=== PATIENT | male | born 1970 | race Caucasian/White ===

== ENCOUNTER → 2019-10-10 | Outpatient (CLI) | payer OTHER, SELFPAY ==
[2019-10-10 15:23] LABS: Hematocrit 45.1 % (40-54); Hemoglobin 14.9 g/dL (13.0-16.5); Mean Corpuscular Hgb 30.9 pg (27.0-32.0); Mean Corpuscular Volume 93.6 fL (80-94); Mean Platelet Vol. 10.8 fl (6.2-12.0); Platelet Count 218 K/mm3 (150-450); RBC Distribution Width CV 12.3 % (11.6-14.6); RBC Distribution Width SD 42.1 fl (35.1-43.9); Red Blood Count 4.82 M/mm3 (4.6-6.2)
[2019-10-10 15:47] LABS: Hemoglobin A1c 5.5 % (3.8-5.6)
[2019-10-10 16:11] LABS: Progesterone Level 0.32 ng/mL (See Comment); Vitamin B12 514 pg/mL (211-911); Vitamin D,25 Hydroxy 37.5 ng/mL
[2019-10-10 16:16] LABS: Homocysteine 8.7 umol/L (3.2-10.7)
[2019-10-10 16:41] LABS: ALB/GLOB Ratio 1.2 RATIO (0.9-2.4); AST(SGOT) 24 U/L (15-37); Alanine Aminotransfer ALT/SGPT 47 U/L (16-61); Albumin, Serum 4.4 g/dL (3.2-5.0); Alkaline Phosphatase 68 U/L (45-117); Anion Gap 5 (5-15); BUN 14 mg/dL (7-18); BUN/Creat Ratio 13.5 RATIO (10-20); CRP, High Sensitivity Cardiac 0.91 mg/L; Calcium,Total 9.1 mg/dL (8.5-10.1); Chloride 105 mmol/L (98-107); Cholesterol 199 mg/dL (200); Creatinine, Serum 1.04 mg/dL (0.70-1.30); EST Glomerular Filtration Rate 80 mL/min (>60); Est Glom Filt Rate - Afr Amer 97 mL/min (>60); Follicle Stimulating Hormone 4.5 mIU/mL; Globulin 3.7 g/dL (2.2-4.2); Glucose 84 mg/dL (74-106); High Density Lipoprotein 48 mg/dL; Iron 93 ug/dL (65-175); Luteinizing Hormone 3.8 mIU/mL; Magnesium 2.2 mg/dL (1.6-2.6); PSA,Total - Annual Screen 1.13 ng/mL (0.00-4.00); Potassium 4.1 mmol/L (3.5-5.1); Prolactin 5.6 ng/mL; Protein, Total 8.1 g/dL (6.4-8.2); Sodium Level 139 mmol/L (136-145); T4 Total, Thyroxin 10.8 ug/dL (4.5-12.1); Thyroid Stim Hormone (TSH) 1.41 uIU/mL (0.358-3.74); Triglycerides 115 mg/dL; Very Low Density Lipoprotein 23 mg/dL (5-40)
[2019-10-10 22:36] LABS: T4 Free Direct 0.99 ng/dL (0.76-1.46)
[2019-10-16 12:07] LABS: Insulin Like Growth Factor 138 ng/mL (81-263); Testosterone, % Free 1.89 % (1.50-4.20); Testosterone, Free 12.27 ng/dL (5.00-21.00)
[2019-10-16 20:04] LABS: Sex Hormone-binding Globulin 46.6 nmol/L (16.5-55.9); Testosterone, Total 649 ng/dL (264-916)
== END | disposition home or self-care (01) ==
LOC: MTLAB 12:24
PROVIDERS: PCP Family Medicine; Referring Provider Nurse Practitioner Family; Visit Provider Nurse Practitioner Family
DX: M62.81 Muscle weakness (generalized) (principal); E66.9 Obesity, unspecified; E29.1 Testicular hypofunction; R68.82 Decreased libido; R53.82 Chronic fatigue, unspecified
CPT/HCPCS: 36415; 80053; 80061; 82306; 82533; 82607; 82627; 82670; 82746; 83001; 83002; 83036; 83090; 83540; 83735; 84144; 84146; 84153; 84270; 84305; 84402; 84403; 84436; 84439; 84443; 84481; 85027; 86141; 82626; G0103